=== PATIENT | male | born 2000 | race Hispanic/Latino ===

== ENCOUNTER 2023-04-23 19:51 | Emergency (ER) | payer BC, OTHER ==
[2023-04-23] MEDS ORDERED: Ibuprofen 600 MG Tab PO ONE (22:16)
== END 2023-04-24 00:01 | disposition home or self-care (01) ==
LOC: MW.ED 19:51
DX: S93.401A Sprain of unspecified ligament of right ankle, initial encounter (principal); X50.1XXA Overexertion from prolonged static or awkward postures, initial encounter; Y93.64 Activity, baseball
CPT/HCPCS: 73610; 99283; A9270

== ENCOUNTER 2023-10-31 00:22 | Emergency (ER) | payer BC, OTHER ==
[2023-10-31] MEDS: Diphtheria,Pertussis(Acell),Tetanus Vaccine 0.5 ML Syringe IM ONE (00:46)
[2023-10-31] MEDS: Bacitracin Oint 1 GM U/D Packet TOP ONE (01:23)
== END 2023-10-31 01:29 | disposition home or self-care (01) ==
LOC: MW.ED 00:22
DX: S61.204A Unspecified open wound of right ring finger without damage to nail, initial encounter (principal); Z86.16 Personal history of COVID-19; Z23 Encounter for immunization; Z75.8 Other problems related to medical facilities and other health care; W23.0XXA Caught, crushed, jammed, or pinched between moving objects, initial encounter; Y99.0 Civilian activity done for income or pay
CPT/HCPCS: 73130-26-RT; 73130-RT; 90471; 90715; 99283; 99283-25